=== PATIENT | male | born 1945 ===

== ENCOUNTER 2017-08-27 18:06 | Emergency (ER) | payer MEDICARE, OTHER ==
[~2017-08-27] VITALS: Ht 177.8 cm; Wt 156.5 kg
[~2017-08-27 18:06] MED LIST: ACETAMINOPHEN500 MG PO; ALLO300 PO; ASPI81CH PO; CLIN150 PO; Cleocin HCl150 MG PO; FURO40 PO; GABA300 PO; GENT.1TC TOP; GLIM4 PO; Humalog100 UNIT/1; INSULANPEN SQ; K-Dur 20 meq T20 MEQ PO; K-Dur20 MEQ; K-Dur20 MEQ PO; LOSA50 PO; MAGOXI400 PO; SIMV10 PO; SPIR50; SPIR50 PO; VALS80; Zocor10 MG PO
== END 2017-08-27 19:11 | disposition home or self-care (01) ==
LOC: ER 18:06
DX: C67.9 Malignant neoplasm of bladder, unspecified (principal); N13.1 Hydronephrosis with ureteral stricture, not elsewhere classified; E11.22 Type 2 diabetes mellitus with diabetic chronic kidney disease; N18.9 Chronic kidney disease, unspecified; Z87.891 Personal history of nicotine dependence; Z79.4 Long term (current) use of insulin; Z79.899 Other long term (current) drug therapy; Z79.82 Long term (current) use of aspirin
CPT/HCPCS: 99283

== ENCOUNTER 2018-07-21 11:35 | Day surgery (SDC) | payer MEDICARE, OTHER ==
[~2018-07-21] VITALS: Ht 175.3 cm; Wt 148.3 kg
[~2018-07-21 11:35] MED LIST changes: +ACET500 PO; +Glucosamine Co1 EAC1 PO; +MULTI VITAMIN1 EACH PO
--- NOTE | 2018-07-21 12:37 | NUR ---
07/21/18 1237 Justyna Cannon 2 IV ATTEPTS BY [facility], 1ST AND 2ND IN R HAND AND BOTH INFILTRATED, 3RD BY [facility] IN L HAND WAS SUCCESSFUL
== END 2018-07-21 14:00 | disposition home or self-care (01) ==
LOC: ORSCSDS 11:35
PROVIDERS: Internal Medicine Gastroenterology
PROC: 0DBC8ZX Excision of Ileocecal Valve, Via Natural or Artificial Opening Endoscopic, Diagnostic (ICD-10-PCS; principal; 2018-07-21 12:45)
DX: Z12.11 Encounter for screening for malignant neoplasm of colon (principal); Z86.010 Personal history of colon polyps; Z80.0 Family history of malignant neoplasm of digestive organs; D12.0 Benign neoplasm of cecum; K57.30 Diverticulosis of large intestine without perforation or abscess without bleeding; E11.9 Type 2 diabetes mellitus without complications; G47.30 Sleep apnea, unspecified; Z87.891 Personal history of nicotine dependence; E66.01 Morbid (severe) obesity due to excess calories; Z68.42 Body mass index [BMI] 45.0-49.9, adult; Z79.4 Long term (current) use of insulin; Z79.82 Long term (current) use of aspirin; Z79.899 Other long term (current) drug therapy
CPT/HCPCS: 82947; 88305; J1980; J2704; J7120

== ENCOUNTER → 2020-01-24 | Outpatient (CLI) | payer MEDICARE, OTHER ==
[2020-01-24 09:26] LABS: BASOPHILS ABSOLUTE AUTO 0.05 K/mm3 (0.00-0.23); BASOPHILS PERCENT AUTO 1 % (0-2); EOSINOPHILS ABSOLUTE AUTO 0.13 K/mm3 (0.00-0.68); EOSINOPHILS PERCENT AUTO 2 % (0-6); Hematocrit 37.6 % (37.0-53.0); Hemoglobin 11.7 g/dL (13.5-17.5); IMMATURE GRAN ABSOLUTE AUTO 0.03 K/mm3 (0.00-0.10); IMMATURE GRAN PERCENT AUTO 1 % (0-1); LYMPHOCYTES ABSOLUTE AUTO 1.55 K/mm3 (0.84-5.20); LYMPHOCYTES PERCENT AUTO 26 % (21-46); MONOCYTES ABSOLUTE AUTO 1.03 K/mm3 (0.16-1.47); MONOCYTES PERCENT AUTO 17 % (4-13); Mean Corpuscular HGB 31.5 pg (26.0-34.0); Mean Corpuscular HGB Conc 31.1 g/dL (31.5-36.5); Mean Corpuscular Volume 101 fL (80-100); Mean Platelet Volume 10.3 fL (9.1-12.4); NEUTROPHILS ABSOLUTE AUTO 3.29 K/mm3 (1.96-9.15); NEUTROPHILS PERCENT AUTO 54 % (41-73); Platelet Count 196 K/mm3 (150-400); RDW Coefficient Variation 14.6 % (11.7-14.2); RDW Standard Deviation 54.4 fL (35.1-46.3); Red Blood Cell Count 3.71 M/mm3 (4.30-5.90); White Blood Cell Count 6.08 K/mm3 (4.00-11.30)
[2020-01-24 09:37] LABS: Alanine Aminotransfer (ALT/SGP 20 U/L (12-78); Albumin, Blood 3.8 g/dL (3.4-5.0); Albumin/Globulin Ratio 1.1 (0.8-1.8); Alk Phos 36 U/L (50-136); Anion Gap 7 mmol/L (6-16); Aspartate Aminotrans (AST/SGOT 15 U/L (12-37); Bilirubin, Direct <0.1 mg/dL (0.0-0.3); Bilirubin, Indirect Unable to Calculate mg/dL (0.1-0.7); Bilirubin, Total 0.4 mg/dL (0.1-1.0); Blood Urea Nitrogen 39 mg/dL (8-24); Bun/Creatinine Ratio 33.9 (12.0-20.0); CO2, Blood 27 mmol/L (21-32); Calcium, Blood 9.2 mg/dL (8.5-10.1); Chloride, Blood 106 mmol/L (98-108); Creatinine, Blood 1.15 mg/dL (0.60-1.20); Globulin, Blood 3.6 g/dL (2.2-4.0); Glomerular Filtration Rate >60 (60-); Glucose, Blood 81 mg/dL (70-99); Potassium, Blood 4.5 mmol/L (3.5-5.5); Prostate Specific Antigen 0.161 ng/mL (0.000-4.000); Sodium, Blood 140 mmol/L (136-145); Total Protein, Blood 7.4 g/dL (6.4-8.2)
== END | disposition home or self-care (01) ==
LOC: OLS 06:43 → LAB SHORT 06:43 → LAB FUT 05-26 08:00
PROVIDERS: Internal Medicine
DX: Z12.5 Encounter for screening for malignant neoplasm of prostate (principal); E78.5 Hyperlipidemia, unspecified; E11.8 Type 2 diabetes mellitus with unspecified complications; D64.9 Anemia, unspecified; I10 Essential (primary) hypertension
CPT/HCPCS: 36415; 80048; 80076; 83036; 85025; G0103

== ENCOUNTER 2020-06-24 12:45 | Emergency (ER) | payer MEDICARE, OTHER ==
[~2020-06-24] VITALS: Ht 175.3 cm; Wt 149.7 kg
[2020-06-24] MEDS ORDERED: HYDR1TAB94 PO (15:11)
[2020-06-24] MEDS ORDERED: Cephalexin500 MG PO (15:11)
== END 2020-06-24 15:38 | disposition home or self-care (01) ==
LOC: ER 12:45
DX: S62.631A Displaced fracture of distal phalanx of left index finger, initial encounter for closed fracture (principal); S61.213A Laceration without foreign body of left middle finger without damage to nail, initial encounter; S61.211A Laceration without foreign body of left index finger without damage to nail, initial encounter; E11.40 Type 2 diabetes mellitus with diabetic neuropathy, unspecified; E11.36 Type 2 diabetes mellitus with diabetic cataract; H26.9 Unspecified cataract; Z79.899 Other long term (current) drug therapy; Z79.84 Long term (current) use of oral hypoglycemic drugs; Z88.5 Allergy status to narcotic agent; Z88.2 Allergy status to sulfonamides; Z88.1 Allergy status to other antibiotic agents; Z87.442 Personal history of urinary calculi; Z87.891 Personal history of nicotine dependence; Z88.6 Allergy status to analgesic agent; W31.2XXA Contact with powered woodworking and forming machines, initial encounter
CPT/HCPCS: 12001; 26755; 73140; 99283-25; A9270

== ENCOUNTER 2020-12-19 11:16 | Emergency (ER) | payer MEDICARE, OTHER ==
[~2020-12-19] VITALS: Ht 172.7 cm; Wt 149.7 kg
[~2020-12-19 11:16] MED LIST changes: +Cephalexin500 MG PO; +HYDR1TAB94 PO
[2020-12-19] MEDS ORDERED: Cleocin HCl300 MG PO (12:35)
== END 2020-12-19 13:10 | disposition home or self-care (01) ==
LOC: ER 11:16
DX: L03.116 Cellulitis of left lower limb (principal); I87.8 Other specified disorders of veins; E11.40 Type 2 diabetes mellitus with diabetic neuropathy, unspecified; M10.9 Gout, unspecified; G47.30 Sleep apnea, unspecified; Z88.2 Allergy status to sulfonamides; Z88.5 Allergy status to narcotic agent; Z88.1 Allergy status to other antibiotic agents; Z88.6 Allergy status to analgesic agent; Z79.4 Long term (current) use of insulin; Z79.899 Other long term (current) drug therapy; Z87.891 Personal history of nicotine dependence
CPT/HCPCS: 96374; 99283-25; J1642

== ENCOUNTER 2023-12-20 14:43 | Emergency (ER) | payer MEDICARE, OTHER ==
[~2023-12-20] VITALS: Ht 180.3 cm; Wt 127.0 kg
[~2023-12-20 14:43] MED LIST changes: +Cleocin HCl300 MG PO; +HUMALOG KW100 UNIT/1; -Humalog100 UNIT/1; +TRAM50 PO
[2023-12-20 15:14] VITALS: BP 120/69
[2023-12-20] MEDS ORDERED: DiphenhydrAMINE HCL 25 MG Cap PO ONE (15:15)
[2023-12-20] MEDS ORDERED: Acetaminophen 325 MG TABLET PO ONE (15:15)
== END 2023-12-20 15:28 | disposition home or self-care (01) ==
LOC: ER 14:43
DX: T63.461A Toxic effect of venom of wasps, accidental (unintentional), initial encounter (principal)
CPT/HCPCS: 99282; A9270

== ENCOUNTER 2024-01-11 02:23 | Day surgery (SDC) | payer MEDICARE, OTHER | END 2024-01-11 23:00 | disposition home or self-care (01) | LOC: WOUND 02:23 | DX: E11.622 Type 2 diabetes mellitus with other skin ulcer (principal); L97.812 Non-pressure chronic ulcer of other part of right lower leg with fat layer exposed; E11.51 Type 2 diabetes mellitus with diabetic peripheral angiopathy without gangrene; I87.2 Venous insufficiency (chronic) (peripheral); I89.0 Lymphedema, not elsewhere classified | CPT/HCPCS: A6213; G0463 ==

== ENCOUNTER 2024-01-18 02:50 | Day surgery (SDC) | payer MEDICARE, OTHER ==
[2024-01-18] MEDS ORDERED: Lidocaine HCl 4% Cream 5 GM ONE (10:49)
== END 2024-01-18 23:08 | disposition home or self-care (01) ==
LOC: WOUND 02:50
DX: E11.622 Type 2 diabetes mellitus with other skin ulcer (principal); L97.811 Non-pressure chronic ulcer of other part of right lower leg limited to breakdown of skin; L97.812 Non-pressure chronic ulcer of other part of right lower leg with fat layer exposed; I87.2 Venous insufficiency (chronic) (peripheral); S81.802D Unspecified open wound, left lower leg, subsequent encounter; E11.51 Type 2 diabetes mellitus with diabetic peripheral angiopathy without gangrene; I12.0 Hypertensive chronic kidney disease with stage 5 chronic kidney disease or end stage renal disease; E11.22 Type 2 diabetes mellitus with diabetic chronic kidney disease; N18.6 End stage renal disease; F03.90 Unspecified dementia, unspecified severity, without behavioral disturbance, psychotic disturbance, mood disturbance, and anxiety
CPT/HCPCS: A6213; A9270

== ENCOUNTER 2024-01-25 01:52 | Day surgery (SDC) | payer MEDICARE, OTHER ==
[2024-01-25] MEDS ORDERED: Lidocaine HCl 4% Cream 5 GM ONE (09:05)
== END 2024-01-25 22:55 | disposition home or self-care (01) ==
LOC: WOUND 01:52
DX: E11.622 Type 2 diabetes mellitus with other skin ulcer (principal); L97.812 Non-pressure chronic ulcer of other part of right lower leg with fat layer exposed; L97.811 Non-pressure chronic ulcer of other part of right lower leg limited to breakdown of skin; S81.802D Unspecified open wound, left lower leg, subsequent encounter; I87.2 Venous insufficiency (chronic) (peripheral); E11.51 Type 2 diabetes mellitus with diabetic peripheral angiopathy without gangrene
CPT/HCPCS: A9270

== ENCOUNTER 2024-01-27 02:48 | Day surgery (SDC) | payer MEDICARE, OTHER | END 2024-01-27 23:00 | disposition home or self-care (01) | LOC: WOUND 02:48 | DX: E11.622 Type 2 diabetes mellitus with other skin ulcer (principal); I87.2 Venous insufficiency (chronic) (peripheral) ==

== ENCOUNTER 2024-02-01 03:52 | Day surgery (SDC) | payer MEDICARE, OTHER ==
[2024-02-01] MEDS ORDERED: Lidocaine HCl 4% Cream 5 GM ONE (10:44)
== END 2024-02-01 23:00 | disposition home or self-care (01) ==
LOC: WOUND 03:52
DX: E11.622 Type 2 diabetes mellitus with other skin ulcer (principal); L97.812 Non-pressure chronic ulcer of other part of right lower leg with fat layer exposed; I87.311 Chronic venous hypertension (idiopathic) with ulcer of right lower extremity; E11.51 Type 2 diabetes mellitus with diabetic peripheral angiopathy without gangrene; I12.0 Hypertensive chronic kidney disease with stage 5 chronic kidney disease or end stage renal disease; E11.22 Type 2 diabetes mellitus with diabetic chronic kidney disease; N18.6 End stage renal disease; F03.90 Unspecified dementia, unspecified severity, without behavioral disturbance, psychotic disturbance, mood disturbance, and anxiety
CPT/HCPCS: A9270

== ENCOUNTER 2024-02-15 02:34 | Day surgery (SDC) | payer MEDICARE, OTHER | END 2024-02-15 23:03 | disposition home or self-care (01) | LOC: WOUND 02:34 | DX: E11.622 Type 2 diabetes mellitus with other skin ulcer (principal); L97.812 Non-pressure chronic ulcer of other part of right lower leg with fat layer exposed; I87.2 Venous insufficiency (chronic) (peripheral); E11.51 Type 2 diabetes mellitus with diabetic peripheral angiopathy without gangrene; E11.22 Type 2 diabetes mellitus with diabetic chronic kidney disease; N18.9 Chronic kidney disease, unspecified; G47.30 Sleep apnea, unspecified ==

== ENCOUNTER 2024-02-22 01:09 | Day surgery (SDC) | payer MEDICARE, OTHER | END 2024-02-22 23:00 | disposition home or self-care (01) | LOC: WOUND 01:09 | DX: E11.621 Type 2 diabetes mellitus with foot ulcer (principal); I87.311 Chronic venous hypertension (idiopathic) with ulcer of right lower extremity; I87.2 Venous insufficiency (chronic) (peripheral); E11.51 Type 2 diabetes mellitus with diabetic peripheral angiopathy without gangrene ==

== ENCOUNTER 2024-02-29 05:43 | Day surgery (SDC) | payer MEDICARE, OTHER | END 2024-02-29 23:52 | disposition home or self-care (01) | LOC: WOUND 05:43 | DX: E11.622 Type 2 diabetes mellitus with other skin ulcer (principal); L97.812 Non-pressure chronic ulcer of other part of right lower leg with fat layer exposed; I87.311 Chronic venous hypertension (idiopathic) with ulcer of right lower extremity; I87.2 Venous insufficiency (chronic) (peripheral); E11.51 Type 2 diabetes mellitus with diabetic peripheral angiopathy without gangrene ==

== ENCOUNTER 2024-03-07 03:14 | Day surgery (SDC) | payer MEDICARE, OTHER | END 2024-03-07 23:00 | disposition home or self-care (01) | LOC: WOUND 03:14 | DX: I87.311 Chronic venous hypertension (idiopathic) with ulcer of right lower extremity (principal); L97.819 Non-pressure chronic ulcer of other part of right lower leg with unspecified severity; I87.2 Venous insufficiency (chronic) (peripheral); I73.9 Peripheral vascular disease, unspecified | CPT/HCPCS: G0463 ==

== ENCOUNTER 2025-02-21 02:23 | Day surgery (SDC) | payer MEDICARE, OTHER ==
[2025-02-21] MEDS ORDERED: Lidocaine HCl 4% Cream 5 GM ONE (08:02)
== END 2025-02-21 23:24 | disposition home or self-care (01) ==
LOC: WOUND 02:23
DX: E11.622 Type 2 diabetes mellitus with other skin ulcer (principal); L97.812 Non-pressure chronic ulcer of other part of right lower leg with fat layer exposed; L97.822 Non-pressure chronic ulcer of other part of left lower leg with fat layer exposed; I87.2 Venous insufficiency (chronic) (peripheral); E11.51 Type 2 diabetes mellitus with diabetic peripheral angiopathy without gangrene; E29.1 Testicular hypofunction; K76.0 Fatty (change of) liver, not elsewhere classified; M19.90 Unspecified osteoarthritis, unspecified site; G47.30 Sleep apnea, unspecified; M10.9 Gout, unspecified; I12.0 Hypertensive chronic kidney disease with stage 5 chronic kidney disease or end stage renal disease; E11.22 Type 2 diabetes mellitus with diabetic chronic kidney disease; N18.9 Chronic kidney disease, unspecified; Z87.891 Personal history of nicotine dependence; Z79.4 Long term (current) use of insulin; Z79.84 Long term (current) use of oral hypoglycemic drugs; Z88.5 Allergy status to narcotic agent
CPT/HCPCS: A9270; G0463

== ENCOUNTER 2025-02-28 02:25 | Day surgery (SDC) | payer MEDICARE, OTHER ==
[2025-02-28] MEDS ORDERED: Lidocaine HCl 4% Cream 5 GM ONE (09:55)
== END 2025-02-28 23:19 | disposition home or self-care (01) ==
LOC: WOUND 02:25
DX: E11.622 Type 2 diabetes mellitus with other skin ulcer (principal); L97.812 Non-pressure chronic ulcer of other part of right lower leg with fat layer exposed; L97.822 Non-pressure chronic ulcer of other part of left lower leg with fat layer exposed; I87.2 Venous insufficiency (chronic) (peripheral); E11.51 Type 2 diabetes mellitus with diabetic peripheral angiopathy without gangrene; E11.22 Type 2 diabetes mellitus with diabetic chronic kidney disease; N18.9 Chronic kidney disease, unspecified; G47.30 Sleep apnea, unspecified; E66.9 Obesity, unspecified; Z68.41 Body mass index [BMI] 40.0-44.9, adult
CPT/HCPCS: A9270

== ENCOUNTER 2025-03-07 09:03 | Day surgery (SDC) | payer MEDICARE, OTHER | END 2025-03-07 23:21 | disposition home or self-care (01) | LOC: WOUND 09:03 | DX: E11.622 Type 2 diabetes mellitus with other skin ulcer (principal); L97.822 Non-pressure chronic ulcer of other part of left lower leg with fat layer exposed; L97.812 Non-pressure chronic ulcer of other part of right lower leg with fat layer exposed; E11.51 Type 2 diabetes mellitus with diabetic peripheral angiopathy without gangrene | CPT/HCPCS: A9270 ==